=== PATIENT | female | born 1965 | race Caucasian/White ===

== ENCOUNTER 2016-12-14 19:00 | Emergency (ER) | payer OTHER ==
--- NOTE | 2016-12-14 19:50 | ED Physician Documentation ---
Lower Extremity Problem - HISTORIAN Historian: patient - HPI Stated Complaint: fall Chief Complaint: General Adult Additional Information: Tripped and fell onto right knee. Hit chin on table. Hit right elbow on floor as well. No LOC. Previous carlos TKR's. - ROS CONST: no problems - PAST HX Past History: chronic back pain Allergies/Adverse Reactions: Allergies Allergy/AdvReac Type Severity Reaction Status Date / Time No Known Allergies Allergy Verified 12/14/16 19:46 Home Medications: Ambulatory Orders Medication Instructions Recorded Fexofenadine HCl [Anabella] 30 mg PO D 12/14/16 Loratadine [Claritin] 10 mg PO D 12/14/16 Naproxen [Naprosyn] 1,000 mg PO PRN PRN 12/14/16 - SOCIAL HX Smoking History: non-smoker - FAMILY HX Family History: no significant history - VITAL SIGNS Vital Signs: Vital Signs Temp Pulse Resp BP Pulse Ox 98.7 F 68 16 136/67 95 12/14/16 19:01 12/14/16 19:01 12/14/16 19:01 12/14/16 19:01 12/14/16 19:01 - REVIEWED ASSESSMENTS Nursing Assessment Reviewed: Yes Vitals Reviewed: Yes Progress - Progress Progress: Examination: Plain film knee History: Knee discomfort Findings: 3 views of the knee demonstrates knee prosthesis in place. No evidence for fracture or loosening. No joint effusion. Impression: Knee prosthesis. No evidence for fracture. Electronically signed on Dec 14, 2016 7:44:52 PM CDT by: Marcio Menchaca Examination: Cervical spine History: Trauma Comparison exams: None available Findings: 3 views of the cervical spine demonstrate normal height and alignment. No anterior compression. No abnormal listhesis. Multilevel osteophyte formation and disc space narrowing extending from the C2/C3 level inferiorly. No odontoid abnormality. No prevertebral abnormality Impression: Multilevel degenerative changes. No acute osseous abnormality Electronically signed on Dec 14, 2016 8:16:46 PM CDT by: Marcio Menchaca ED Results Lab/Radiology - Orders Orders: ED Orders Category Date Time Status CERVICAL SPINE STANDARD VIEWS [C SPINE 2 OR 3 VIEWS] [ Exams 12/14/16 Taken RAD] Stat KNEE 3 VIEWS [RAD] Stat Exams 12/14/16 Taken Lower Extremity Problem - EXAM General Appearance: no distress Legs: bilateral: normal inspection, no evidence of injury Knees: right: swelling (mild, purple ecchymosis faintly visible anterior medial knee), bilateral: other (well lhealed surgical scars) Ankle: bilateral: normal inspection, no evidence of injury Neuro/Tendon: normal sensation, normal motor functions, normal tendon functions EENT: eye inspection normal RESPIRATORY: no resp distress JOINT: painful (right forearm with purple ecchymosis distal to dorsal elbow. Full ROM active and passive, pronation/supination, right elbow w/o pain. ) NEURO/PSYCH: CN's nml as tested, motor nml, sensation nml, cognition normal SKIN: warm/dry, normal color (except as above) BACK: other (movements w/o pain) Discharge Clincal Impression: Fall Knee contusion Qualifiers: Encounter type: initial encounter Laterality: right Qualified Code(s): S80.01XA - Contusion of right knee, initial encounter Chin contusion Qualifiers: Encounter type: initial encounter Qualified Code(s): S00.83XA - Contusion of other part of head, initial encounter Elbow contusion Qualifiers: Encounter type: initial encounter Laterality: right Qualified Code(s): S50.01XA - Contusion of right elbow, initial encounter Referrals: Primary Doctor,No [Primary Care Provider] - 2 Days Additional Instructions: Ice to the sore areas several times a day for a week. You can take your naprosyn as needed. You could also take 1000 mg tylenol up to three times a day if needed for discomfort. Home Medications: Ambulatory Orders Fexofenadine HCl [Anabella] 30 mg PO D 12/14/16 Loratadine [Claritin] 10 mg PO D 12/14/16 Naproxen [Naprosyn] 1,000 mg PO PRN PRN 12/14/16 Condition: Good Disposition: 01 HOME, SELF-CARE Decision to Admit: NO Decision Time: 20:25
[2016-12-14 20:41] VITALS: BP 136/65
--- NOTE | 2016-12-15 03:55 | Diagnostic Imaging Report ---
STUART PAN~ [facility] [address] [facility] [address] ~ ~ ~ ~ Report Submission Date: Dec 14, 2016 7:44:52 PM CDT Patient ~ Study Name: JANUSZ CARMONA ~ Date: Dec 14, 2016 7:16:54 PM CDT ~ Modality Type: CR Gender: F ~ Description: LOWER EXTREMITY : 63 ~ Institution: [facility] Physician: STUART PAN ~ ~ ~ ~ Examination: Plain film knee History: Knee discomfort Findings:~3 views of the knee demonstrates knee prosthesis in place. No evidence for fracture or loosening. No joint effusion. Impression: Knee prosthesis. No evidence for fracture. ~ Electronically signed on Dec 14, 2016 7:44:52 PM CDT by: Marcio JAMES
--- NOTE | 2016-12-15 03:56 | Diagnostic Imaging Report ---
STUART PAN~ [facility] [address] [facility] [address] [address] ~ ~ ~ ~ Report Submission Date: Dec 14, 2016 8:16:46 PM CDT Patient ~ Study Name: JANUSZ CARMONA ~ Date: Dec 14, 2016 7:52:17 PM CDT ~ Modality Type: CR Gender: F ~ Description: SPINE : 63 ~ Institution: [facility] Physician: STUART PAN ~ ~ ~ ~ Examination: Cervical spine History: Trauma Comparison exams: None available Findings: 3 views of the cervical spine demonstrate normal height and alignment. ~ No anterior compression.~ No abnormal listhesis.~ Multilevel osteophyte formation and disc space narrowing extending from the C2/C3 level inferiorly. No odontoid abnormality.~ No prevertebral abnormality Impression: Multilevel degenerative changes. No acute osseous abnormality ~ Electronically signed on Dec 14, 2016 8:16:46 PM CDT by: Marcio JAMES
== END 2016-12-14 20:34 | disposition home or self-care (01) ==
LOC: ED 19:00
DX: S80.01XA Contusion of right knee, initial encounter (principal); S00.83XA Contusion of other part of head, initial encounter; S50.01XA Contusion of right elbow, initial encounter; X58.XXXA Exposure to other specified factors, initial encounter; Y93.9 Activity, unspecified; Y99.9 Unspecified external cause status
CPT/HCPCS: 72040; 73562; 99283